=== PATIENT | female | born 1995 | race African-American/Black ===

== ENCOUNTER 2017-12-17 15:43 | Emergency (ER) | payer OTHER ==
--- NOTE | 2017-12-17 16:59 | RAD ---
LEFT HAND THREE VIEWS: 12/17/17 HISTORY: Closed door on left thumb today. Pain. COMPARISON: None. FINDINGS: No fracture. No cortical irregularity or periosteal reaction. Joint spaces is preserved. IMPRESSION: Unremarkable three views left hand. POS: [facility]
== END 2017-12-17 16:40 | disposition home or self-care (01) ==
LOC: MADERS 15:43
DX: S60.112A Contusion of left thumb with damage to nail, initial encounter (principal); W31.89XA Contact with other specified machinery, initial encounter

== ENCOUNTER 2019-05-14 11:31 | Emergency (ER) | payer OTHER, SELFPAY ==
[2019-05-14] MEDS ORDERED: Lidocaine 1% w/Epinephrine 1:100K 20 ML VIAL ONE (12:35)
[2019-05-14] MEDS ORDERED: Penicillin V Potassium 250 MG TAB ONE (14:03)
[2019-05-14] MEDS ORDERED: Acetaminophen 500 MG TAB ONE (14:03)
== END 2019-05-14 14:00 | disposition home or self-care (01) ==
LOC: MADERS 11:31
DX: K04.7 Periapical abscess without sinus (principal)
CPT/HCPCS: 41800; 64400